=== PATIENT | male | born 1940 | race Hispanic/Latino ===

== ENCOUNTER 2019-11-19 15:27 | Inpatient (IN) | payer MEDICARE, OTHER ==
[~2019-11-19] VITALS: Ht 170.2 cm; Wt 99.3 kg
[2019-11-19] MEDS ORDERED: ONDANSETRON HCL INJ 2MG/ML 2ML 2 MG/ML VIAL IV PRN (16:45)
[2019-11-19] MEDS ORDERED: DEXTROSE 5%/0.45% SOD CHL 1,000 ML IV SCH (16:45)
[2019-11-19] MEDS ORDERED: ASPIRIN 81 MG CHEW TAB PO ONE ×2 (16:45)
[2019-11-19 16:57] VITALS: BP 129/64
[2019-11-19 17:15] VITALS: BP 129/64
[2019-11-19] MEDS ORDERED: MORPHINE SULFATE 2 MG/ML SYR 1ML IV PRN (17:30)
[2019-11-19] MEDS ORDERED: VITAMIN B-121000 MCG PO (17:41)
[2019-11-19] MEDS ORDERED: PIOGLITAZONE HC45 MG PO (17:41)
[2019-11-19] MEDS ORDERED: ASPIRIN81 MG PO (17:41)
[2019-11-19] MEDS ORDERED: ISOSORBIDE MONO30 MG PO (17:41)
[2019-11-19] MEDS ORDERED: GLIPIZIDE5 MG PO (17:41)
[2019-11-19] MEDS ORDERED: AMLODIPINE BESYL5 MG PO (17:41)
[2019-11-19] MEDS ORDERED: CARVEDILOL12.5 MG PO (17:41)
[2019-11-19] MEDS ORDERED: LOSARTAN-HCTZ1 EAC1 PO (17:41)
[2019-11-19] MEDS ORDERED: SIMVASTATIN20 MG PO (17:41)
[2019-11-19 18:08] LABS: CREATINE KINASE MB 1.5 ng/mL (0-5.0)
[2019-11-19] MEDS ORDERED: ACETAMINOPHEN 325 MG TAB PO PRN (19:45)
[2019-11-19] MEDS ORDERED: HYDRALAZINE HCL 20 MG/ML VIAL IV PRN (19:45)
[2019-11-19 20:00] VITALS: BP 142/53
[2019-11-19] MEDS: SODIUM CHLORIDE 0.9% 1000ML 1,000 ML IV SCH (20:20)
[2019-11-19 22:49] VITALS: BP 142/53
[2019-11-20] VITALS (8 sets, daily range): BP systolic 97–144; BP diastolic 57–74
[2019-11-20 01:26] LABS: CREATINE KINASE MB 1.4 ng/mL (0-5.0)
[2019-11-20] MEDS: SODIUM CHLORIDE 0.9% 1000ML 1,000 ML IV SCH ×3 (04:00→16:56)
[2019-11-20 05:35] LABS: BASOPHILS % 0.3 % (0.0-1.0); EOSINOPHILS # (AUTO) 0.1 (0.0-0.4); EOSINOPHILS % 1.2 % (0.0-6.0); HEMATOCRIT 36.3 % (38.2-49.6); HEMOGLOBIN 12.4 g/dL (14.0-18.0); LYMPHOCYTES # (AUTO) 1.2 (1.0-3.2); MEAN CORPUSCULAR HEMOGLOBIN 35.8 pg (28-32); MEAN CORPUSCULAR HGB CONC 34.2 g/dL (31-35); MEAN CORPUSCULAR VOLUME 104.9 fL (81-99); MONOCYTES # (AUTO) 0.6 (0.2-0.8); NEUTROPHILS # (AUTO) 5.5 (2.1-6.9); NEUTROPHILS % 74.1 % (38.7-80.0); PLATELET COUNT 125 x10e3/uL (140-360); RED BLOOD COUNT 3.46 x10e6/uL (4.3-5.7); RED CELL DISTRIBUTION WIDTH 12.9 % (11.7-14.4)
[2019-11-20 06:01] LABS: ALBUMIN 3.8 g/dL (3.5-5.0); ALBUMIN/GLOBULIN RATIO 1.3 (0.8-2.0); ANION GAP 11.5 mmol/L (8-16); CALCIUM 8.7 mg/dL (8.4-10.2); CREATININE, SERUM 1.78 mg/dL (0.72-1.25); POTASSIUM 4.5 mmol/L (3.5-5.1)
[2019-11-20 06:22] LABS: CREATINE KINASE MB 1.3 ng/mL (0-5.0)
[2019-11-20 06:32] LABS: INR 1.14; PROTHROMBIN TIME 15.3 seconds (11.9-14.5)
[2019-11-20 06:56] LABS: THYROID STIMULATING HORMONE 1.56 uIU/mL (0.350-4.940)
[2019-11-20 06:57] LABS: CHOL/HDL RATIO 4.1 (3.9-4.7)
--- NOTE | 2019-11-20 07:10 | NUR ---
RCD PT AT BED PT IS ALERT AND ORIENTED PT RESTING ON BED IV PATENT PT NPO BED LOW AND LOCKED CALL LIGHT IN REACH
[2019-11-20] MEDS: ASPIRIN 81 MG CHEW TAB PO SCH (09:00)
[2019-11-20] MEDS: ENOXAPARIN SODIUM INJ 100 MG/ML SYR SC SCH (09:00)
[2019-11-20] MEDS: FAMOTIDINE 20 MG/2 ML VIAL IV SCH ×2 (09:00→16:19)
--- NOTE | 2019-11-20 09:25 | NUR ---
PT WENT TO PROCEDURE IN SAFE CONDITION
[2019-11-20] MEDS: INSULIN LISPRO 100 UNIT/1 ML 3ML VIAL SQ SCH ×3 (11:30→20:50)
[2019-11-20] MEDS ORDERED: DEXTROSE 50% SYRINGE 50 ML IV PRN (11:30)
--- NOTE | 2019-11-20 12:27 | NUR ---
Discontinuing PT services since patient is independent in functional mobility. Thank you. Addendum: 11/20/19 at 1227 by Loc vargas PT Amended: Links added.
[2019-11-20] MEDS: AMLODIPINE BESYLATE 5 MG TAB PO SCH (12:30)
--- NOTE | 2019-11-20 14:44 | Diagnostic Imaging Report ---
Perfusion Lung Scan NOTE: Lung ventilation studies with xenon are not being performed per the recommendation of the Society of Nuclear Medicine and Molecular [employer]. It is not possible to be certain that the ventilation system is adequately disinfected. Ventilation studies with Tc-99m DTPA particles is contraindicated because the delivery by nebulization generates too many water droplets from the patient's airway. Clinical Information: Chest pain; acute pancreatitis Comparison: None Discussion: Ventilation images were not obtained. See note above. Perfusion images of the lungs were obtained in multiple projections following intravenous administration of approximately 6.1 mCi of Tc-99m MAA. Distribution of tracer is mildly irregular throughout the lungs. There are no segmental perfusion defects of any size. The cardiomediastinal silhouette is borderline enlarged. Impression: 1. Scan findings represent a VERY LOW probability for acute pulmonary embolic disease based on the perfusion-only PIOPED II criteria. 2. Scan findings are compatible with diffuse parenchymal and/or obstructive lung disease 3. Borderline enlarged cardiac silhouette. Signed by: Dr. Sarah Miranda M.D. on 11/20/2019 2:41 PM
--- NOTE | 2019-11-20 15:21 | Diagnostic Imaging Report ---
EXAM: Right upper quadrant abdominal ultrasound INDICATION: Right upper quadrant pain COMPARISON: None. TECHNIQUE: Transverse and longitudinal images of the right upper quadrant abdomen were obtained FINDINGS: Liver: Size: 14.6 cm in the right midclavicular line, normal Appearance: Normal echogenicity, smooth contour Mass: No focal masses Gallbladder: Gallstones and sludge in the gallbladder. No gallbladder wall thickening, gallbladder distention, or cholecystic fluid. Negative sonographic Hale's sign. Gallbladder wall measures 3 mm. Bile Ducts: Intrahepatic Ducts: No dilatation Extrahepatic Ducts: Common bile duct measures 3 mm Pancreas: Visualized portions of the pancreatic head, neck and proximal body are normal. Kidney: The right kidney measures 11.0 cm without evidence of hydronephrosis or stone. Vessels: Aorta: Not well-visualized due to overlying bowel gas. Inferior Vena Cava: Visualized portions are normal Main Portal Vein: 1.1 cm, normal size with hepatopetal flow. Free Fluid: No ascites or pleural effusion IMPRESSION: Cholelithiasis and gallbladder sludge without sonographic evidence of acute cholecystitis. Signed by: Sinai Multani MD on 11/20/2019 3:18 PM
--- NOTE | 2019-11-20 18:38 | NUR ---
PATIENT RESTING ON BED BEDSIDE REPORT GIVEN TO ONCOMING NURSE
[2019-11-20] MEDS: SIMVASTATIN 20 MG TAB PO SCH (21:30)
[2019-11-21] VITALS (8 sets, daily range): BP systolic 119–143; BP diastolic 53–61
[2019-11-21] MEDS: SODIUM CHLORIDE 0.9% 1000ML 1,000 ML IV SCH ×2 (02:52→14:30)
[2019-11-21 05:21] LABS: BASOPHILS % 0.2 % (0.0-1.0); EOSINOPHILS # (AUTO) 0.1 (0.0-0.4); EOSINOPHILS % 2.3 % (0.0-6.0); LYMPHOCYTES # (AUTO) 1.1 (1.0-3.2); LYMPHOCYTES % 18.6 % (18.0-39.1); MEAN CORPUSCULAR HGB CONC 33.3 g/dL (31-35); MONOCYTES # (AUTO) 0.7 (0.2-0.8); MONOCYTES % 11.9 % (4.4-11.3); NEUTROPHILS % 66.7 % (38.7-80.0); PLATELET COUNT 129 x10e3/uL (140-360); RED BLOOD COUNT 3.53 x10e6/uL (4.3-5.7); RED CELL DISTRIBUTION WIDTH 12.5 % (11.7-14.4)
[2019-11-21 05:54] LABS: ALBUMIN 3.5 g/dL (3.5-5.0); ALBUMIN/GLOBULIN RATIO 1.1 (0.8-2.0); ANION GAP 12.6 mmol/L (8-16); CALCIUM 8.7 mg/dL (8.4-10.2); CREATININE, SERUM 1.49 mg/dL (0.72-1.25); POTASSIUM 4.6 mmol/L (3.5-5.1)
[2019-11-21] MEDS: INSULIN LISPRO 100 UNIT/1 ML 3ML VIAL SQ SCH ×4 (07:30→20:43)
[2019-11-21] MEDS: ASPIRIN 81 MG CHEW TAB PO SCH (09:24)
[2019-11-21] MEDS: AMLODIPINE BESYLATE 5 MG TAB PO SCH (09:24)
[2019-11-21] MEDS: ISOSORBIDE MONONITRATE 30 MG TAB CR PO SCH (09:24)
[2019-11-21] MEDS: FAMOTIDINE 20 MG/2 ML VIAL IV SCH ×2 (09:27→16:53)
[2019-11-21] MEDS: ENOXAPARIN SODIUM INJ 100 MG/ML SYR SC SCH (09:27)
[2019-11-21] MEDS: LACTATED RINGER'S 1,000 ML INJ SCH (18:42)
--- NOTE | 2019-11-21 20:42 | Progress Note ---
DATE: CONSULTING PHYSICIAN: Dr. Isiah Mae with Surgery. SUBJECTIVE: The patient is lying supine in bed, awake, alert, abdominal pain currently rated at 2 on a scale of 0-10. States he is urinating frequently all night. No specific complaints. OBJECTIVE: VITAL SIGNS: Temperature 98.5, heart rate 62, respirations 17, blood pressure 135/61 with oxygen saturation 98% on room air. GENERAL: No acute distress. LUNGS: Clear to auscultation. Respiratory pattern even and unlabored. HEENT: EOMI. NECK: Supple. CARDIOVASCULAR: Regular rate and rhythm. No murmur. Normal saline infusing at 100 mL an hour into a peripheral IV. ABDOMEN: Bowel sounds positive. Soft, nontender. No guarding. EXTREMITIES: Without pitting edema. No clubbing, cyanosis, or notable swelling. No signs of DVT. NEUROLOGICAL: GCS 15. Nonfocal. LABORATORY DATA: WBCs 5.98, hemoglobin 12, hematocrit 36, and platelets 129. Sodium 141, potassium 4.6, chloride 110, CO2 of 23, BUN 17, creatinine 1.49, estimated GFR 45, and glucose 113. Fingerstick blood glucose levels 121 and 126, calcium 8.7, total bilirubin 1.9, AST 94, ALT 162, alkaline phosphatase 128, total protein 6.6, albumin 3.5, and lipase 226 (1416). Serology; Olea virus PCR collected on 11/18 is pending. 11/19, abdominal ultrasound showed cholelithiasis and gallbladder sludge without sonographic evidence of acute cholecystitis. V/Q lung scan collected on 11/19, scan findings representing a very low probability for acute pulmonary embolic disease based on the perfusion only PIOPED II criteria. Echocardiogram done on 11/18 shows an estimated ejection fraction of 55-60%. ASSESSMENT AND PLAN: 1. Chest pain, resolved. Cardiac biomarkers were negative x3 sets. Ejection fraction 55-60%. Lipids were within normal limits. Continue aspirin. 2. Acute pancreatitis. Lipase trending downward nicely currently 226. Continue n.p.o. status, IV fluids of normal saline at 100 mL an hour. Continue to monitor lipase levels. Ultrasound did show cholelithiasis without cholecystitis. Dr. aMe with Surgery consulted to determine if patient needs cholecystectomy. 3. Elevated D-dimer. Continue Lovenox. V/Q scan negative. 4. Controlled type 2 diabetes mellitus. Hemoglobin A1c 5.7%. Fingerstick blood glucose levels stable. Continue to monitor. 5. Hyperlipidemia. Continue Zocor. 6. Controlled hypertension. Continue p.r.n. IV hydralazine and Norvasc 5 mg daily and isosorbide mononitrate 60 mg daily. 7. Acute kidney injury. Creatine 1.47, estimated GFR 45. Continue IV fluids. Monitor renal labs. 8. Transaminitis. Liver function tests stable. Abdominal ultrasound showed cholelithiasis. Abdominal pain improving significantly. 9. Thrombocytopenia with platelet level of 129. We will discontinue Pepcid and start on Protonix. 10. Prophylaxis. Protonix and Lovenox. Billing code 36618. Time spent 35 minutes. Dictated by Sin Fagan NP Wang Enciso MD HWP/MODL /[id number]
[2019-11-21] MEDS: SIMVASTATIN 20 MG TAB PO SCH (20:59)
[2019-11-22] VITALS (8 sets, daily range): BP systolic 138–182; BP diastolic 54–91
[2019-11-22] MEDS: LACTATED RINGER'S 1,000 ML INJ SCH ×2 (04:15→15:28)
[2019-11-22 05:07] LABS: BASOPHILS % 0.3 % (0.0-1.0); EOSINOPHILS # (AUTO) 0.1 (0.0-0.4); EOSINOPHILS % 2.2 % (0.0-6.0); HEMATOCRIT 34.2 % (38.2-49.6); HEMOGLOBIN 11.8 g/dL (14.0-18.0); LYMPHOCYTES # (AUTO) 1.3 (1.0-3.2); MEAN CORPUSCULAR HEMOGLOBIN 34.4 pg (28-32); MEAN CORPUSCULAR HGB CONC 34.5 g/dL (31-35); MEAN CORPUSCULAR VOLUME 99.7 fL (81-99); MONOCYTES # (AUTO) 0.7 (0.2-0.8); NEUTROPHILS # (AUTO) 3.7 (2.1-6.9); PLATELET COUNT 123 x10e3/uL (140-360); RED BLOOD COUNT 3.43 x10e6/uL (4.3-5.7); RED CELL DISTRIBUTION WIDTH 11.9 % (11.7-14.4)
[2019-11-22 05:39] LABS: ALBUMIN 3.3 g/dL (3.5-5.0); ALBUMIN/GLOBULIN RATIO 1.1 (0.8-2.0); ANION GAP 11.9 mmol/L (8-16); CALCIUM 8.7 mg/dL (8.4-10.2); CREATININE, SERUM 1.21 mg/dL (0.72-1.25); POTASSIUM 3.9 mmol/L (3.5-5.1)
[2019-11-22] MEDS: INSULIN LISPRO 100 UNIT/1 ML 3ML VIAL SQ SCH ×4 (07:30→21:00)
[2019-11-22] MEDS: ENOXAPARIN SODIUM INJ 100 MG/ML SYR SC SCH (08:38)
[2019-11-22] MEDS: ASPIRIN 81 MG CHEW TAB PO SCH (08:38)
[2019-11-22] MEDS: PANTOPRAZOLE SOD 40 MG TABEC PO SCH (08:38)
[2019-11-22] MEDS: ISOSORBIDE MONONITRATE 30 MG TAB CR PO SCH (08:38)
[2019-11-22] MEDS: AMLODIPINE BESYLATE 5 MG TAB PO SCH (08:38)
--- NOTE | 2019-11-22 14:07 | Consultation ---
DATE OF CONSULTATION: 11/22/2019 CHIEF COMPLAINT: Chest pain. HISTORY OF PRESENT ILLNESS: The patient is an 79-year-old male with 4-day history of pain in epigastric lower chest area. No radiation with nausea. No vomiting. Pain has improved since admission. He denies fever, chills, or diarrhea. He has mild attacks in the past, which resolved spontaneously. PAST MEDICAL HISTORY: Significant for coronary artery disease, diabetes, hyperlipidemia, hypertension, and renal insufficiency. PAST SURGICAL HISTORY: Unremarkable except for coronary artery bypass. ALLERGIES: HE HAS NO DRUG ALLERGIES. SOCIAL HABITS: He does not smoke or drink. REVIEW OF SYSTEMS: No chest pain, shortness of breath, fever, or cough. PHYSICAL EXAMINATION: VITAL SIGNS: Stable, afebrile. GENERAL: He is awake, alert, in mild discomfort. HEENT: Sclerae are nonicteric. NECK: Supple. LUNGS: Clear. HEART: Regular rate and rhythm. ABDOMEN: Soft with mild guarding in right upper quadrant without rebound. EXTREMITIES: No cyanosis or edema. LABORATORY DATA: White cell count 5.9, hemoglobin 11.8, and platelets count 123. Creatinine is 1.2. Liver function tests within normal limits with bilirubin 1.8 and alkaline phosphatase 130. Lipase is 134 from a high of 5746. Ultrasound of the gallbladder showed gallstone with sludge. ASSESSMENT: Gallstone pancreatitis, which has improved. PLAN: Laparoscopic cholecystectomy. Attendant risks discussed. Isiah Mae MD DNL/MODL /[id number]
--- NOTE | 2019-11-22 19:25 | NUR ---
Completed bedside nursing report with morning nurse. Pt alert and oriented to name, lying in bed HOB 60 degrees. Denies pain at this time. Call light within reach.
[2019-11-22] MEDS: SIMVASTATIN 20 MG TAB PO SCH (21:00)
[2019-11-23] VITALS: BP_SYST 134; BP_DIAS 71; BP_DIAS 72
--- NOTE | 2019-11-23 00:39 | Progress Note ---
DATE: CONSULTING PHYSICIAN: Isiah mae MD SUBJECTIVE: The patient is lying supine in bed, asleep and arouses easily. Denies chest or abdominal pain. No new complaints. OBJECTIVE: VITAL SIGNS: Temperature 98.9, heart rate 62, blood pressure 153/66, respirations 18, and oxygen saturation 97%. GENERAL: Supine, no acute distress. LUNGS: Clear to auscultation. No supplemental oxygen. HEENT: EOMI. NECK: Supple. CARDIOVASCULAR: Regular rate and rhythm. No murmur. Lactated Ringer's infusing at 100 mL an hour into a peripheral IV. ABDOMEN: Bowel sounds positive. Soft, nontender. EXTREMITIES: Without pitting edema. No clubbing, cyanosis, or notable swelling. No signs of DVT. NEUROLOGICAL: GCS 15. Nonfocal. LABORATORY DATA: WBCs 5.91, hemoglobin 11.8, hematocrit 34.2, platelets 123. Sodium 140, potassium 3.9, chloride 109, CO2 of 23, BUN 14, creatinine 1.21, glucose 104, estimated GFR 58. Fingerstick blood glucose levels 107, 120. Lipase 134 (226). Total bilirubin 1.8, AST 47, ALT 107, alkaline phosphatase 130, total protein 6.3, albumin 3.3. No new imaging studies. ASSESSMENT AND PLAN: 1. Gallstone pancreatitis. Lipase continues to trend down. NPO for cholecystectomy tomorrow by Dr. Mae. Continue LR at 100 mL an hour. 2. Elevated D-dimer. Continue Lovenox. V/Q scan negative. 3. Controlled type 2 diabetes mellitus. Hemoglobin A1c 5.7%. Monitor fingerstick blood glucose levels. 4. Hyperlipidemia, on Zocor. 5. Controlled hypertension. Continue p.r.n. IV hydralazine and Norvasc as well as isosorbide mononitrate. 6. Acute kidney injury. Creatinine 1.21 (1.49). Estimated GFR 58 (45). Continue IV fluids. Reassess renal labs in the morning. 7. Transaminitis. Liver function tests stable. AST and ALT continue to improve. Total bilirubin 1.8. 8. Thrombocytopenia. Platelets 123 (129). 9. Prophylaxis. Pepcid and Lovenox. Billing code [id number]. Time spent 35 minutes. Dictated by Sin Fagan, GRADER OPERATOR MD KATHERINE Gordon/LESLEY /[id number]
[2019-11-23 04:00] VITALS: BP 151/66
[2019-11-23] MEDS: LACTATED RINGER'S 1,000 ML INJ SCH ×3 (05:30→21:15)
[2019-11-23 06:26] LABS: BASOPHILS % 0.4 % (0.0-1.0); EOSINOPHILS # (AUTO) 0.2 (0.0-0.4); EOSINOPHILS % 3.1 % (0.0-6.0); HEMATOCRIT 33.9 % (38.2-49.6); HEMOGLOBIN 12.1 g/dL (14.0-18.0); LYMPHOCYTES # (AUTO) 1.3 (1.0-3.2); MEAN CORPUSCULAR HGB CONC 35.7 g/dL (31-35); MEAN CORPUSCULAR VOLUME 103.7 fL (81-99); MONOCYTES # (AUTO) 0.6 (0.2-0.8); NEUTROPHILS # (AUTO) 3.1 (2.1-6.9); NEUTROPHILS % 58.7 % (38.7-80.0); PLATELET COUNT 114 x10e3/uL (140-360); RED BLOOD COUNT 3.27 x10e6/uL (4.3-5.7); RED CELL DISTRIBUTION WIDTH 12.7 % (11.7-14.4)
[2019-11-23 06:46] LABS: ALBUMIN 3.5 g/dL (3.5-5.0); ALBUMIN/GLOBULIN RATIO 1.1 (0.8-2.0); ANION GAP 13.1 mmol/L (8-16); CREATININE, SERUM 1.23 mg/dL (0.72-1.25); POTASSIUM 4.1 mmol/L (3.5-5.1)
[2019-11-23 07:27] VITALS: BP 160/76
[2019-11-23] MEDS: INSULIN LISPRO 100 UNIT/1 ML 3ML VIAL SQ SCH ×4 (07:30→20:48)
[2019-11-23] MEDS: AMLODIPINE BESYLATE 5 MG TAB PO SCH (09:30)
[2019-11-23] MEDS: ISOSORBIDE MONONITRATE 30 MG TAB CR PO SCH (09:30)
[2019-11-23] MEDS ORDERED: BUPIVACAINE 0.25%/EPI 30ML SDV INJ ONE (10:22)
[2019-11-23 11:27] VITALS: BP 141/66
--- NOTE | 2019-11-23 12:40 | NUR ---
Dr. Mae called to see if cardiology has cleared patient for surgery yet. I told him there is not dictated note from cardiology in the EMR or in the paper chart. Per Dr. Mae surgery will have to be rescheduled for 11/24/2019 and cardiology needs to come by today to clear the patient. Patient and patient's daughter was notified.
[2019-11-23 15:43] VITALS: BP 151/61
--- NOTE | 2019-11-23 16:13 | NUR ---
Spoke to Dr. Sarah Sanchez he said he will be back here today to see the patient and clear him for surgery tomorrow.
[2019-11-23] MEDS: PANTOPRAZOLE SOD 40 MG TABEC PO SCH (17:04)
[2019-11-23] MEDS: ASPIRIN 81 MG CHEW TAB PO SCH (17:04)
--- NOTE | 2019-11-23 19:20 | NUR ---
Received nursing shift report from morning nurse. Pt alert and oriented to name. Denies pain at this time. Bed low and locked. Call light within reach.
[2019-11-23 20:00] VITALS: BP 163/70
[2019-11-23] MEDS: SIMVASTATIN 20 MG TAB PO SCH (20:47)
--- NOTE | 2019-11-23 21:40 | Progress Note ---
DATE: 11/23/2019 SUBJECTIVE: The patient is lying supine in bed. No new complaints. Seems to be doing well overall. Dr. Sarah Sanchez, Cardiology, saw the patient today. Case was discussed with Dr. Sanchez and the patient is cleared from a Cardiology standpoint for cholecystectomy tomorrow, on 11/23. OBJECTIVE: VITAL SIGNS: Temperature 97.9, heart rate 70, blood pressure 141/66, respirations 16, oxygen saturation 98%. GENERAL: No acute distress. LUNGS: Clear auscultation. Respirations even and nonlabored. HEENT: EOMI. NECK: Supple. CARDIOVASCULAR: Regular rate and rhythm without murmur. The patient took a shower, currently lactated Ringer's not infusing. ABDOMEN: Bowel sounds positive. Soft, nontender. EXTREMITIES: No pitting edema. No clubbing, cyanosis, or signs of DVT. NEUROLOGICAL: GCS 15. Nonfocal. LABORATORY DATA: WBC is 5.23, hemoglobin 12.1, hematocrit 33.9, platelets 114, neutrophils 50.7%. Sodium 141, potassium 4.1, chloride 106, CO2 of 26, BUN 11, creatinine 1.23, glucose 100, estimated GFR 57, calcium 9.0, total bilirubin 1.5, AST 42, ALT 86, alkaline phosphatase 156, total protein 6.7, albumin 3.5. No new imaging studies. ASSESSMENT AND PLAN: 1. Gallstone pancreatitis. Lipase has trended down well. Maintain n.p.o. status for cholecystectomy tomorrow by Dr. Mae. Cardiology has cleared for surgery. Continue LR at 100 mL an hour. 2. Elevated D-dimer. Continue Lovenox. V/Q scan was negative. 3. Controlled type 2 diabetes mellitus. Hemoglobin A1c 5.7%. Fingerstick blood glucose levels 107 and 120 yesterday. 4. Hyperlipidemia, on Zocor. 5. Controlled hypertension. Continue Norvasc and p.r.n. IV hydralazine and isosorbide mononitrate. 6. Acute kidney injury. Creatinine 1.23 (1.21, 1.49). Continue IV fluids. Monitor renal labs. 7. Transaminitis. Total bilirubin 1.5 (1.8), AST 42, ALT 86, alkaline phosphatase 156. 8. Thrombocytopenia. Platelets 114 (123, 129). Pepcid has been changed to Protonix. Monitor. 9. Prophylaxis. Protonix and Lovenox. Billing code [id number]. Time spent 35 minutes. Dictated by Sin Fagan, TIMEKEEPER MD KATHERINE Gordon/MODL /[id number]
--- NOTE | 2019-11-23 22:25 | Consultation ---
DATE OF CONSULTATION: 11/22/2019 Cardiology Consult Note REASON FOR CONSULT: Chest pain. Preoperative assessment. CHIEF COMPLAINT: Abdominal pain and chest pain. HISTORY OF PRESENT ILLNESS: An 79-year-old man, who presents with epigastric pain, nausea, vomiting, and abdominal pain. No prior history of CAD. His abdominal pain has since improved. There is plan for laparoscopic cholecystectomy for gallstone pancreatitis. PAST MEDICAL HISTORY: Hypertension, hyperlipidemia, diabetes, chronic kidney disease. REVIEW OF SYSTEMS: As per HPI, otherwise negative. SOCIAL HISTORY: He does not smoke, drink, or abuse drugs. FAMILY HISTORY: Noncontributory. OUTPATIENT MEDICATIONS: Reviewed. ALLERGIES: NO KNOWN DRUG ALLERGIES. PHYSICAL EXAMINATION: VITAL SIGNS: Temperature afebrile, pulse 70, blood pressure 141/66, saturating 98% on room air. GENERAL: Elderly man, in no acute distress. CARDIOVASCULAR: Regular rate and rhythm. No murmurs, rubs, or gallops. LUNGS: Clear to auscultation bilaterally. ABDOMEN: Soft, mildly tender, nondistended. NEURO AND PSYCH: Alert and oriented to person, place, and time. Normal affect. INPATIENT MEDICATIONS: Reviewed. LABORATORY DATA: Reviewed, notable for troponins negative x3. GFR 57. Coronavirus negative. IMAGING DATA: Reviewed. V/Q scan, low probability. TELEMETRY DATA: Reviewed, shows normal sinus rhythm. ASSESSMENT/PLAN: 1. Bradycardia. 2. Chest pain. 3. Preop evaluation. PLAN: Bradycardia has resolved. Echocardiogram reviewed, shows normal LV function. No significant valvular abnormalities. EKG without any acute ischemia. Troponin negative x3. Given these findings, the patient will be low risk for laparoscopic cholecystectomy from a cardiovascular standpoint. Okay to proceed without any further cardiovascular workup. We will continue to monitor closely in the perioperative period. Thank you for this consult. We will continue to follow. MD KERRIE Marrero/LESLEY /[id number]
[2019-11-24] VITALS (8 sets, daily range): BP systolic 131–163; BP diastolic 50–89
[2019-11-24] MEDS: LACTATED RINGER'S 1,000 ML INJ SCH ×2 (06:15→16:15)
--- NOTE | 2019-11-24 07:00 | NUR ---
received report, pt is alert resting in bed, no s/s of distress noted. pt informed that lap katrina will be at 11 am. call light within reach and instructed pt to call RN for help
[2019-11-24] MEDS: PANTOPRAZOLE SOD 40 MG TABEC PO SCH (07:30)
[2019-11-24] MEDS: INSULIN LISPRO 100 UNIT/1 ML 3ML VIAL SQ SCH ×4 (07:30→19:31)
[2019-11-24] MEDS: ISOSORBIDE MONONITRATE 30 MG TAB CR PO SCH (07:40)
[2019-11-24] MEDS: ASPIRIN 81 MG CHEW TAB PO SCH (07:40)
[2019-11-24] MEDS: AMLODIPINE BESYLATE 5 MG TAB PO SCH (07:41)
--- NOTE | 2019-11-24 09:45 | NUR ---
pt off unit for scheduled lap katrina
[2019-11-24] MEDS ORDERED: BUPIVACAINE 0.25%/EPI 30ML SDV INJ ONE (10:05)
--- NOTE | 2019-11-24 12:29 | NUR ---
pt is still off unit in OR
[2019-11-24] MEDS ORDERED: MORPHINE SULFATE INJ 4 MG/ML INJ 1ML IV PRN (13:15)
[2019-11-24] MEDS ORDERED: FENTANYL CITRATE/PF 100MCG/2 ML INJ ONE (13:33)
--- NOTE | 2019-11-24 14:04 | Operative Report ---
DATE OF PROCEDURE: 11/24/2019 SURGEON: Isiah Mae MD PREOPERATIVE DIAGNOSIS: Cholecystitis. POSTOPERATIVE DIAGNOSES: 1. Cholecystitis. 2. Cirrhosis of liver. OPERATIVE PROCEDURE: Laparoscopic cholecystectomy. ANESTHESIA: General. INDICATION: An 79-year-old male with abdominal pain and elevated serum lipase. The patient was found to have ultrasound findings of gallstone. After the pancreatitis has resolved and MRCP negative, the patient consented for laparoscopic cholecystectomy. Attendant risks discussed. PROCEDURE FINDINGS: Liver cirrhosis with cholecystitis and pigmented stones. DESCRIPTION OF PROCEDURE: The patient was brought to the OR intubated. Abdomen was then prepped and draped in sterile fashion. Infraumbilical incision was made and a 10 mm port inserted. Insufflation begun under direct vision. Other port site placed in the midepigastric and right upper quadrant. Gallbladder distended and chronically inflamed. Fundus retracted in cephalad direction. Next, the gallbladder retracted laterally. We isolated cystic artery, triply clipped and divided. Cystic duct was isolated. However, there is gross information at the neck, precluding safe visualization and dissection. Therefore, a retrograde separation of the gallbladder from the liver bed was carried out using cautery. Due to the cirrhosis of the liver, bleeding from the gallbladder bed was encountered, which was controlled with cauterization and Surgicel. Dissection was carried out toward the neck of the gallbladder where the cystic duct was clearly visualized and controlled with an Endoloop ties of 0 PDS. The gallbladder was then amputated above the ties and removed through the umbilical incision with an Endopouch. Operative field irrigated with copious saline solution. Hemostasis achieved. A 19-Turkmen Marcin drain placed in Morison pouch and taken out through the right upper quadrant port site. All other ports removed under direct vision. Fascia closed with 0 Vicryl. Skin was closed with subcuticular stitch. The patient was extubated and transported to recovery room. BLOOD LOSS: 50 mL. Isiah Mae MD DNL/MODL /[id number]
--- NOTE | 2019-11-24 14:30 | NUR ---
received patient from PACU. pt is resting comfortably, no s/s of distress. pt is on RA, no c/o pain at this time
--- NOTE | 2019-11-24 16:12 | NUR ---
Nutrition Screen Note RD Recommendation for Physician: -Recommend advancing to low fat diet when medically appropriate Plan of Care: RD following, monitoring for tolerance and adequacy Nutrition reason for involvement: NPO/Clear liquid diet for > 4 days Primary Diagnose(s): chest pain, gallstone pancreatitis PMH: HTN, HLD, diabetes, CKD Ht: 67 in Wt:219 lb BMI: 34.3 kg/m2 IBW:[address] Assessment: (11/24/19) Chart reviewed. Labs and meds reviewed. Pt is an 79 year old male admitted with chest pain and gallstone pancreatitis. Attempted to call pt over the phone, but he did not answer. Per chart, pt is scheduled to have a cholecystectomy today. There are no previous weights in chart. Pt is currently NPO. Pt has been NPO/clear liquid diet for 5 days. Recommend advancing diet when medically appropriate. Will continue to monitor. Current Diet: NPO Malnutrition Evaluation (11/24/19) Unable to fully assess. Will re-evaluate at follow-up as appropriate. Energy intake: <50% of estimated energy requirements for 5 days Weight loss: Unable to assess Fat loss: unable to evaluate Muscle loss: unable to evaluate Supporting Evidence: Fluid accumulation: no accumulation identified Functional Status: unable to evaluate Diet Education Needs Assessment: Diet education is not indicated Nutrition Care Level: moderate Signed: Nelia Celeste, RD, LD
[2019-11-24] MEDS: SIMVASTATIN 20 MG TAB PO SCH (20:01)
--- NOTE | 2019-11-24 20:31 | Progress Note ---
DATE: 11/24/2019 Cardiology Progress Note SUBJECTIVE: No major events. He is planned for surgery today. OBJECTIVE: VITAL SIGNS: Temperature afebrile, pulse 60, respiratory rate 16, blood pressure 141/52, and saturating 98% on nasal cannula. GENERAL: Elderly man, in no acute distress. CARDIOVASCULAR: Regular rate and rhythm. No murmurs, rubs, or gallops. LUNGS: Clear to auscultation bilaterally. ABDOMEN: Soft, mildly tender, nondistended. NEUROLOGIC AND PSYCH: Alert and oriented to person, place, and time. Normal affect. INPATIENT MEDICATIONS: Reviewed. LABORATORY DATA: Reviewed. TELEMETRY DATA: Reviewed, shows normal sinus rhythm. ASSESSMENT AND PLAN: 1. Chest pain. 2. Preop evaluation, rule out for acute myocardial infarction with serial troponins. Echocardiogram shows normal LV function. No significant valvular disease. Okay to proceed with laparoscopic cholecystectomy. The patient is okay to be discharged from cardiovascular standpoint postoperatively, is doing well. He can follow up as an outpatient for stress test. Thank you for this consult. We will continue to follow. MD KERRIE Marrero/LESLEY /[id number]
[2019-11-25] VITALS (8 sets, daily range): BP systolic 139–147; BP diastolic 54–78
[2019-11-25] MEDS: LACTATED RINGER'S 1,000 ML INJ SCH ×3 (00:46→21:15)
[2019-11-25 06:03] LABS: BASOPHILS % 0.3 % (0.0-1.0); EOSINOPHILS # (AUTO) 0.1 (0.0-0.4); EOSINOPHILS % 1.2 % (0.0-6.0); HEMATOCRIT 36.9 % (38.2-49.6); HEMOGLOBIN 13.6 g/dL (14.0-18.0); LYMPHOCYTES # (AUTO) 1.1 (1.0-3.2); LYMPHOCYTES % 12.3 % (18.0-39.1); MEAN CORPUSCULAR HEMOGLOBIN 37.6 pg (28-32); MEAN CORPUSCULAR HGB CONC 36.9 g/dL (31-35); MEAN CORPUSCULAR VOLUME 101.9 fL (81-99); MONOCYTES # (AUTO) 0.9 (0.2-0.8); MONOCYTES % 9.6 % (4.4-11.3); NEUTROPHILS # (AUTO) 6.9 (2.1-6.9); NEUTROPHILS % 76.2 % (38.7-80.0); PLATELET COUNT 132 x10e3/uL (140-360); RED BLOOD COUNT 3.62 x10e6/uL (4.3-5.7); RED CELL DISTRIBUTION WIDTH 12.6 % (11.7-14.4)
[2019-11-25 06:30] LABS: ALANINE AMINOTRANSFERASE 86 IU/L (0-55); ALBUMIN 3.3 g/dL (3.5-5.0); ALKALINE PHOSPHATASE 154 IU/L (40-150); ANION GAP 15.7 mmol/L (8-16); BLOOD UREA NITROGEN 11 mg/dL (7-26); BUN/CREATININE RATIO 10 (6-25); CALCIUM 8.9 mg/dL (8.4-10.2); CARBON DIOXIDE 20 mmol/L (22-29); CHLORIDE 106 mmol/L (98-107); EST GLOMERULAR FILTRATION RATE > 60 ML/MIN (60-); GLUCOSE 110 mg/dL (74-118); LIPASE 51 U/L (8-78); MAGNESIUM 1.6 MG/DL (1.3-2.1); POTASSIUM 3.7 mmol/L (3.5-5.1); SODIUM 138 mmol/L (136-145)
--- NOTE | 2019-11-25 07:00 | NUR ---
RECEIVED PATIENT RESTING IN BED NO S/S OF DISTRESS. BED LOW, WHEELS LOCKED, SIDE RAILS X2. CALL LIGHT IN REACH WILL CONTINUE TO MONITOR PATIENT.
[2019-11-25] MEDS: INSULIN LISPRO 100 UNIT/1 ML 3ML VIAL SQ SCH ×4 (07:30→21:15)
[2019-11-25] MEDS: PANTOPRAZOLE SOD 40 MG TABEC PO SCH (08:40)
[2019-11-25] MEDS: ISOSORBIDE MONONITRATE 30 MG TAB CR PO SCH (08:40)
[2019-11-25] MEDS: AMLODIPINE BESYLATE 5 MG TAB PO SCH (08:40)
[2019-11-25] MEDS: ASPIRIN 81 MG CHEW TAB PO SCH (08:40)
[2019-11-25] MEDS ORDERED: HYDROCODONE/APAP 7.5MG-325MG 1 EA TAB PO PRN ×2 (12:30→12:45)
[2019-11-25] MEDS: SIMVASTATIN 20 MG TAB PO SCH (21:15)
--- NOTE | 2019-11-25 21:15 | NUR ---
PATIENT IS RESTING IN BED COMFORTABLY IN STABLE CONDITION, NO SIGNS OF DISTRESS NOTED. IV FLUIDS ARE RUNNING AT ORDERED RATE AND PATIENT VOICES PAIN AT A LEVEL OF 2 AND REQUESTS NO MEDICATION AT THIS TIME. PATIENT TOLERATING FULL LIQUID DIET AND WILL TRY A GI SOFT DIET FOR BREAKFAST. CHICO DRAIN IS PATENT AND DRAINING AT 50CC. BED IS IN LOWEST POSITION, BOTH SIDE RAILS ARE UP, CALL LIGHT IS WITHIN EASY REACH, WILL CONTINUE TO MONITOR.
[2019-11-25] MEDS ORDERED: MAGNESIUM SULFATE 2GM/50ML 50 ML IV ONE (23:00)
[2019-11-26] VITALS: BP 151/58
[2019-11-26 04:00] VITALS: BP 161/63
[2019-11-26] MEDS: INSULIN LISPRO 100 UNIT/1 ML 3ML VIAL SQ SCH ×2 (07:30→11:30)
[2019-11-26 08:31] VITALS: BP 153/72
[2019-11-26] MEDS: AMLODIPINE BESYLATE 5 MG TAB PO SCH (08:53)
[2019-11-26] MEDS: ISOSORBIDE MONONITRATE 30 MG TAB CR PO SCH (08:53)
[2019-11-26] MEDS: ASPIRIN 81 MG CHEW TAB PO SCH (08:53)
[2019-11-26] MEDS: PANTOPRAZOLE SOD 40 MG TABEC PO SCH (08:53)
[2019-11-26 08:57] VITALS: BP 153/72
[2019-11-26] MEDS ORDERED: MAGNESIUM HYDROXIDE 30 ML UDC PO ONE (10:00)
[2019-11-26] MEDS ORDERED: TYLENOL WITH C1 EACH PO (10:54)
[2019-11-26 11:41] VITALS: BP 136/68
--- NOTE | 2019-11-26 11:47 | Progress Note ---
DATE: 11/24/2019 CONSULTING PHYSICIANS: Include Dr. Isiah Mae with Surgery and Dr. Sander Vázquez with Cardiology. SUBJECTIVE: The patient is lying supine in bed. He states his abdominal pain is about 4/10 on 0 to 10 pain scale. He was seen postoperatively in room 214. He states he has not passed any gas yet. OBJECTIVE: VITAL SIGNS: Temperature 98.1, pulse 66, blood pressure 143/58, respirations 18, and oxygen saturation 98% on room air. GENERAL: Supine, in no acute distress. LUNGS: Clear to auscultation. No supplemental oxygen. HEENT: EOMI. NECK: Supple. CARDIOVASCULAR: Regular rate and rhythm. No murmur. Lactated Ringer's infusing at 75 mL an hour through a peripheral IV. ABDOMEN: Bowel sounds are present. Abdomen is soft. He has a right CHICO drain with serosanguineous drainage inside. No guarding. EXTREMITIES: No pitting edema. No clubbing, cyanosis, or signs of DVT. NEUROLOGICAL: GCS 15. Nonfocal. LABORATORY DATA: Fingerstick blood glucose level 110. IMAGING STUDIES: No new imaging studies. ASSESSMENT AND PLAN: 1. Gallstone pancreatitis, status post laparoscopic cholecystectomy on 11/24/[address] Mae. Lipase on 11/21 was 134. He has been n.p.o. We will place him on a clear liquid diet. Continue LR at 100 mL an hour. 2. Elevated D-dimer. V/Q scan negative. Lovenox was discontinued as the patient had surgery. 3. Controlled type 2 diabetes mellitus. Hemoglobin A1c 5.7%. Monitor FSBG. 4. Hyperlipidemia, on Zocor. 5. Controlled hypertension. Blood pressure 143/58. Continue Norvasc and p.r.n. IV hydralazine as well as isosorbide mononitrate. 6. Acute kidney injury. Creatinine 1.23 and estimated GFR 57 yesterday. Continue IV fluids. Reassess renal labs in the morning. 7. Transaminitis. Liver function tests have been stable. AST and ALT continue to improve. 8. Thrombocytopenia. Platelets were 114 yesterday, down from 123. Reassess platelets in the morning. 9. Prophylaxis, Pepcid. Billing code [id number]. Time spent 35 minutes. Dictated by Sin Fagan NP MD KATHERINE Gordon/LESLEY /[id number]
--- NOTE | 2019-11-26 12:01 | Progress Note ---
DATE: CONSULTING PHYSICIANS: Dr. Isiah Mae with Surgery and Dr. Sander Vázquez with Cardiology. SUBJECTIVE: Per MASSIEL [place], the patient is not eating much, not passing any flatus postoperatively. He was switched from clear liquid diet to a full liquid diet per Surgery. PHYSICAL EXAMINATION: VITAL SIGNS: Temperature 98.7, heart rate 64, blood pressure 142/55, respirations 20, oxygen saturation 95%, T-max 99.9. GENERAL: Asleep, easily arousable. LUNGS: Clear to auscultation. Respiratory pattern even unlabored. No supplemental oxygen. HEENT: EOMI. NECK: Supple. CARDIOVASCULAR: Regular rate and rhythm. No murmur. ABDOMEN: Bowel sounds are positive. Soft, obese, nondistended. He has a right abdominal CHICO drain with serosanguineous drainage inside. EXTREMITIES: No pitting edema. No clubbing, cyanosis, or notable swelling. NEUROLOGICAL: GCS 15. Nonfocal. LABORATORY DATA: WBCs 9.04, hemoglobin 13.6, hematocrit 36.9, and platelets 132. Sodium 138, potassium 3.7, chloride 106, CO2 of 20, anion gap 15.7, BUN 11, creatinine 1.1, estimated GFR greater than 60, glucose 110, calcium 8.9, phosphorus 3, magnesium 1.6, total bilirubin 1.2, AST 61, ALT 86, alkaline phosphatase 154, total protein 6.7, albumin 3.3, lipase 51. IMAGING STUDIES: No new imaging studies. ASSESSMENT AND PLAN: 1. Gallstone pancreatitis, status post laparoscopic cholecystectomy on 11/24/[address] Mae. Lipase trended down nicely. Lipase today 51 (134, 226, 1416, 5746). Continue LR at 100 mL/h. The patient seems to be tolerating full liquid diet okay, but not eating much, apparently not passing gas yet, and not ambulating. Encourage ambulation and see him again in the morning to determine if ready for discharge. Tolerating his full liquid diet, we will advance to GI soft. 2. Elevated D-dimer. V/Q scan negative. Lovenox was discontinued. 3. Controlled type 2 diabetes mellitus. Hemoglobin A1c 5.7%. Serum glucose 110. 4. Hyperlipidemia, on Zocor. 5. Controlled hypertension. Blood pressure 142/55. Continue isosorbide mononitrate, Norvasc, and p.r.n. IV hydralazine. 6. Acute kidney injury. Creatinine 1.1 (1.23). Estimated GFR greater than 60 (58, 45). Continue IV fluids. Acute kidney injury resolved. 7. Transaminitis. Liver function tests are stable. AST 61 (42), ALT 86 (86), alkaline phosphatase 154 (156), total bilirubin 1.2 (1.5, 1.8, 1.9). 8. Thrombocytopenia. Platelets 132 (114, 123, 129), improving. 9. Acute hypomagnesemia. Magnesium level 1.6, 2 g magnesium sulfate IV once ordered. 10. Prophylaxis. Pepcid. Billing code [id number]. Time spent 35 minutes. Dictated by Sin Fagan NP MD JOSIAS GordonP/DEVAUGHNL /[id number]
--- NOTE | 2019-11-26 12:12 | Discharge Summary ---
CONSULTING PHYSICIANS: 1. Isiah Mae MD, with Surgery. 2. Sander Vázquez MD, with Cardiology. PRIMARY CARE PHYSICIAN: Dr. Abdirahman Ayala. CHIEF COMPLAINT: Chest pain, abdominal pain. HISTORY OF PRESENT ILLNESS: The patient is an 79-year-old male, who was admitted with complaints of constant sharp chest pain that began yesterday morning. He denies nausea, vomiting, diarrhea, fever, shortness of breath, diaphoresis, or dizziness. According to the patient's daughter, the patient had a similar episode in the past due to "stones." PAST MEDICAL HISTORY: Hypertension, hyperlipidemia, type 2 diabetes mellitus. PAST SURGICAL HISTORY: Coronary artery bypass graft x4 vessels. FAMILY HISTORY: Noncontributory. SOCIAL HISTORY: Noncontributory. ALLERGIES: NO KNOWN ALLERGIES. ADMITTING DIAGNOSES: 1. Chest pain. 2. Acute pancreatitis. 3. Elevated D-dimer. 4. Type 2 diabetes mellitus. 5. Hyperlipidemia. 6. Hypertension. 7. Acute kidney injury. DISCHARGE DIAGNOSES: 1. Gallstone pancreatitis, status post laparoscopic cholecystectomy on 11/24/[address] Isiah Mae. 2. Elevated D-dimer. 3. Controlled type 2 diabetes mellitus. 4. Hyperlipidemia. 5. Controlled hypertension. 6. Acute kidney injury, resolved. 7. Transaminitis, improving. 8. Thrombocytopenia, improving. 9. Acute hypomagnesemia. Regarding the patient's gallstone pancreatitis, initially it was thought that he just had regular acute pancreatitis. However, Surgery was consulted after the ultrasound of the gallbladder done on 11/19, revealed cholelithiasis and gallbladder sludge without sonographic evidence of acute cholecystitis. Per the surgeon's dictated consultation note, assessment is gallstone pancreatitis, which has improved. Plan was for laparoscopic cholecystectomy. Cardiology was consulted for initial complaint of chest pain as well as cardiac clearance for the surgery. Cardiology saw the patient on 11/21. Bradycardia had resolved at that point. His echocardiogram done on 11/20/2019, revealed estimated ejection fraction of 55-60% showing normal left ventricular function. No significant valvular abnormalities. EKG was without any acute ischemia. Troponin was negative x3 and the patient was deemed to be low risk for laparoscopic cholecystectomy from a cardiovascular standpoint. IV fluids were changed on 11/20 to lactated Ringer's at 100 mL an hour due to the pancreatitis and his lipase level gradually went down to a normal. Pepcid was changed to Protonix because of thrombocytopenia. He was on Lovenox due to the elevated D-dimer. His V/Q scan was negative. Hemoglobin A1c 5.7% and blood sugars were stable. Blood pressure was controlled throughout his visit. His acute kidney injury gradually improved. Please see note dictated 11/24 for progress in lab values. Lipase level 51 on 11/24 and BUN 11, creatinine 1.1, estimated GFR greater than 60. This morning, the patient was seen by Dr. Mae and states the patient can be discharged from a Surgery standpoint. He plans to take out the drain on Wednesday at the patient's followup appointment. The patient states currently he has no pain. He is passing gas. Milk of magnesia was given per Dr. Mae's order for constipation, as he has not had a bowel movement several days. Today's vital signs, temperature 97.4, heart rate 71, blood pressure 161/63, respirations 20, oxygen saturation 95%. No change in physical exam. No new labs today. The patient will be discharged on a GI soft diet and advance to a regular diet gradually as tolerated. He tolerated GI soft diet with breakfast this morning. Activity level as tolerated. Encourage ambulation. Follow up with the PCP, Dr. Ayala in 1-2 weeks. Follow up with Dr. Mae in 2 days. Follow up with Dr. Vázquez [email or web address]. The patient to call Dr. Vázquez's office to make an appointment. Dictated by Sin Fagan, RALPH Wang Enciso MD HWP/MODL /[id number]
--- NOTE | 2019-11-26 12:50 | NUR ---
Educated patient how to empty aster drain. Patient voiced understanding and returned demonstration.
--- NOTE | 2019-11-26 13:19 | NUR ---
Left AC discontinued. No signs of infiltration noted. 2x2 gauze and tape placed. Taken via wheelchair to personal car. AAOX4 to time, person, place, situation. Respirations even and unlabored. Dressing to right abdomen aster drain clean, dry, and intact. Discharge instructions, rx, and all personal belongings taken with patient.
== END 2019-11-26 13:19 | disposition home or self-care (01) | DRG 418 ==
LOC: MED/SURG2 16:22
PROVIDERS: ADMIT Internal Medicine; ATTEND Internal Medicine
PROC: 0FT44ZZ Resection of Gallbladder, Percutaneous Endoscopic Approach (ICD-10-PCS; principal; 2019-11-24 11:00)
DX: K85.10 Biliary acute pancreatitis without necrosis or infection (principal); K80.10 Calculus of gallbladder with chronic cholecystitis without obstruction; N17.9 Acute kidney failure, unspecified; I10 Essential (primary) hypertension; D69.6 Thrombocytopenia, unspecified; E83.42 Hypomagnesemia; E11.9 Type 2 diabetes mellitus without complications; E78.5 Hyperlipidemia, unspecified; K74.60 Unspecified cirrhosis of liver; R00.1 Bradycardia, unspecified; Z11.59 Encounter for screening for other viral diseases
CPT/HCPCS: 36415; 76705; 78582; 80053; 80061; 82550; 82553; 82948; 83036; 83690; 83735; 84100; 84443; 84484; 85025; 85610; 88304; 93306; 96361; A9540; J0360; J1650; J2270; J2405; J3010; J3475; J7030; J7121; U0002

== ENCOUNTER 2022-02-03 09:32 | Inpatient (IN) | payer MEDICARE ==
[~2022-02-03] VITALS: Ht 177.8 cm; Wt 97.2 kg
[2022-02-03] VITALS (39 sets, daily range): BP systolic 57–124; BP diastolic 22–86
[~2022-02-03 09:32] MED LIST: AMLODIPINE BESYL5 MG PO; ASPIRIN81 MG PO; CARVEDILOL12.5 MG PO; GLIPIZIDE5 MG PO; ISOSORBIDE MONO30 MG PO; LOSARTAN-HCTZ1 EAC1 PO; PIOGLITAZONE HC45 MG PO; SIMVASTATIN20 MG PO; TYLENOL WITH C1 EACH PO; VITAMIN B-121000 MCG PO
[2022-02-03] MEDS ORDERED: SODIUM CHLORIDE 0.9% 1000ML 1,000 ML IV STA ×2 (09:59→12:00)
[2022-02-03 10:26] LABS: BASOPHILS % 0.2 % (0.0-1.0); EOSINOPHILS % 0.4 % (0.0-6.0); LYMPHOCYTES # (AUTO) 0.8 (1.0-3.2); LYMPHOCYTES % 7.6 % (18.0-39.1); MEAN CORPUSCULAR HEMOGLOBIN 36.6 pg (28-32); MEAN CORPUSCULAR HGB CONC 31.8 g/dL (31-35); MEAN CORPUSCULAR VOLUME 115.2 fL (81-99); MONOCYTES # (AUTO) 0.5 (0.2-0.8); MONOCYTES % 4.9 % (4.4-11.3); NEUTROPHILS # (AUTO) 8.9 (2.1-6.9); NEUTROPHILS % 85.7 % (38.7-80.0); PLATELET COUNT 240 x10e3/uL (140-360); RED BLOOD COUNT 1.91 x10e6/uL (4.3-5.7); RED CELL DISTRIBUTION WIDTH 13.5 % (11.7-14.4)
[2022-02-03 10:33] LABS: INR 2.7; PARTIAL THROMBOPLASTIN TIME 31.9 seconds (23.8-35.5); PROTHROMBIN TIME 30.6 seconds (11.9-14.5)
[2022-02-03 10:41] LABS: ALBUMIN 3.3 g/dL (3.5-5.0); ALBUMIN/GLOBULIN RATIO 1.3 (0.8-2.0); ANION GAP 20.7 mmol/L (8-16); CALCIUM 8.9 mg/dL (8.4-10.2); CREATININE, SERUM 2.24 mg/dL (0.72-1.25); MAGNESIUM 2.3 MG/DL (1.3-2.1); POTASSIUM 4.7 mmol/L (3.5-5.1)
[2022-02-03] MEDS ORDERED: SODIUM CHLORIDE 0.9% 250ML 250 ML IV ONE ×2 (11:00→17:15)
[2022-02-03 11:04] LABS: CREATINE KINASE MB 2.8 ng/mL (0-5.0); THYROID STIMULATING HORMONE 2.099 uIU/mL (0.350-4.940)
[2022-02-03] MEDS ORDERED: OCTREOTIDE ACETATE 0.05 MG/ML AMP IV ONE (11:30)
[2022-02-03] MEDS: OCTREOTIDE ACETATE 500 MCG in SODIUM CHLORIDE 0.9% 250ML 250 ML IV SCH ×2 (11:45→23:11)
[2022-02-03] MEDS ORDERED: DEXTROSE 50% SYRINGE 50 ML IV PRN (12:15)
[2022-02-03] MEDS ORDERED: ONDANSETRON HCL INJ 2MG/ML 2ML 2 MG/ML VIAL IV PRN (12:15)
[2022-02-03 12:41] LABS: % IRON SATURATION 26 % (15-50); IRON 107 ug/dL (65-175); TOTAL IRON BINDING CAPACITY 405 ug/dL (261-478); TRANSFERRIN 289 mg/dL (174-364)
[2022-02-03 12:44] LABS: PLATELET ESTIMATE ADEQUATE; PLATELET MORPHOLOGY COMMENT NORMAL; RBC MORPHOLOGY COMMENT ABNORMAL
[2022-02-03 13:56] LABS: CLARITY,URINE CLEAR (CLEAR); COLOR,URINE YELLOW (YELLOW); KETONES,URINE NEGATIVE (NEGATIVE); LEUKOCYTE ESTERASE ,URINE NEGATIVE (NEGATIVE); NITRITE,URINE NEGATIVE (NEGATIVE); PROTEIN,URINE DIPSTICK NEGATIVE (NEGATIVE); URINE UROBILINOGEN 0.2 mg/dL (0.2 - 1)
[2022-02-03 14:01] LABS: EPITHELIAL CELLS,URINE RARE /LPF; RBC,URINE 0-5 /HPF (0-5); WBC,URINE (MAN) 0-5 /HPF (0-5)
[2022-02-03] MEDS ORDERED: LIDOCAINE HCL 2% LOCAL 20 ML VIAL ONE (14:39)
[2022-02-03] MEDS: NOREPINEPHRINE 8 MG/D5W 250 ML 250 ML IV SCH ×2 (15:59→23:23)
[2022-02-03] MEDS: INSULIN REGULAR, HUMAN 100 UNIT/1 ML SQ SCH ×2 (16:30→21:41)
[2022-02-03] MEDS ORDERED: SODIUM CHLORIDE 0.9% 1000ML 1,000 ML ONE ×2 (16:39→18:23)
[2022-02-03 16:44] LABS: HEMOGLOBIN 6.7 g/dL (14.0-18.0)
[2022-02-03] MEDS ORDERED: HYDRALAZINE HCL 20 MG/ML VIAL IV PRN (16:45)
[2022-02-03] MEDS ORDERED: MEROPENEM 1 GM in SODIUM CHLORIDE 0.9% 100 ML IV ONE (16:45)
[2022-02-03] MEDS ORDERED: DESMOPRESSIN ACETATE 4 MCG/ML VIAL IV ONE (17:00)
[2022-02-03] MEDS: SODIUM CHLORIDE 0.9% 1000ML 1,000 ML IV SCH (17:03)
[2022-02-03] MEDS ORDERED: PHYTONADIONE 1 MG/0.5 ML AMP INJ ONE (17:15)
[2022-02-03] MEDS ORDERED: PHYTONADIONE 10MG/ML 2 ML ONE (17:21)
[2022-02-03] MEDS ORDERED: SODIUM CHLORIDE 0.9% 500ML 1,000 ML ONE (17:24)
[2022-02-03] MEDS ORDERED: PHYTONADIONE 10MG/ML 1 ML ONE (17:25)
[2022-02-03 17:30] LABS: INR 2.2; PROTHROMBIN TIME 26.1 seconds (11.9-14.5)
[2022-02-03] MEDS ORDERED: Vancomycin IV 1 GM in SODIUM CHLORIDE 0.9% 250ML 250 ML IV ONE (17:45)
[2022-02-03] MEDS ORDERED: VASOPRESSIN 60 UNIT in DEXTROSE 5% 50ML 57 ML IV PRN ×2 (18:15→18:45)
[2022-02-03] MEDS ORDERED: SODIUM CHLORIDE 0.9% 100 ML ONE (18:22)
[2022-02-03] MEDS ORDERED: IOPAMIDOL 370 MG/ML 100 ML INFUS..BTL INJ ONE (18:22)
[2022-02-03] MEDS ORDERED: VASOPRESSIN INJ 20 UNIT/ML VIAL ONE (18:25)
[2022-02-03] MEDS ORDERED: DEXTROSE 5% 50ML 50 ML IV ONE (18:26)
[2022-02-03 18:59] LABS: BASOPHILS % 0.2 % (0.0-1.0); EOSINOPHILS % 0.1 % (0.0-6.0); HEMATOCRIT 30.4 % (38.2-49.6); HEMOGLOBIN 9.6 g/dL (14.0-18.0); LYMPHOCYTES # (AUTO) 0.9 (1.0-3.2); LYMPHOCYTES % 7.4 % (18.0-39.1); MEAN CORPUSCULAR HEMOGLOBIN 31.9 pg (28-32); MEAN CORPUSCULAR HGB CONC 31.6 g/dL (31-35); MONOCYTES # (AUTO) 0.7 (0.2-0.8); MONOCYTES % 5.6 % (4.4-11.3); NEUTROPHILS # (AUTO) 10.4 (2.1-6.9); NEUTROPHILS % 85.3 % (38.7-80.0); PLATELET COUNT 148 x10e3/uL (140-360); RED BLOOD COUNT 3.01 x10e6/uL (4.3-5.7); RED CELL DISTRIBUTION WIDTH 19.2 % (11.7-14.4)
[2022-02-03 19:43] LABS: ANION GAP 21.2 mmol/L (8-16); CALCIUM 7.5 mg/dL (8.4-10.2); CREATININE, SERUM 2.29 mg/dL (0.72-1.25)
[2022-02-03 19:45] LABS: POTASSIUM 5.2 mmol/L (3.5-5.1)
[2022-02-03 20:08] LABS: ABG PCO2 28 mmHg (35-45); ABG PH 7.37 (7.35-7.45); ABG PO2 76 mmHg (80-105)
[2022-02-03 20:09] LABS: ABG HCO3 16 mmol/L (22-26); ABG TCO2 17
[2022-02-03] MEDS: SIMVASTATIN 20 MG TAB PO SCH (21:00)
[2022-02-03 22:25] LABS: HEMATOCRIT 32.6 % (38.2-49.6); HEMOGLOBIN 10.6 g/dL (14.0-18.0)
[2022-02-04] VITALS (92 sets, daily range): BP systolic 93–148; BP diastolic 49–127
[2022-02-04 00:35] LABS: INR 1.54; PROTHROMBIN TIME 19.8 seconds (11.9-14.5)
[2022-02-04 00:36] LABS: PARTIAL THROMBOPLASTIN TIME 29.2 seconds (23.8-35.5)
[2022-02-04] MEDS: SODIUM CHLORIDE 0.9% 1000ML 1,000 ML IV SCH (02:30)
[2022-02-04 06:13] LABS: BASOPHILS % 0.2 % (0.0-1.0); HEMATOCRIT 33.4 % (38.2-49.6); HEMOGLOBIN 10.9 g/dL (14.0-18.0); LYMPHOCYTES # (AUTO) 0.7 (1.0-3.2); LYMPHOCYTES % 4.3 % (18.0-39.1); MEAN CORPUSCULAR HEMOGLOBIN 32.1 pg (28-32); MEAN CORPUSCULAR HGB CONC 32.6 g/dL (31-35); MEAN CORPUSCULAR VOLUME 98.2 fL (81-99); MONOCYTES # (AUTO) 1.3 (0.2-0.8); MONOCYTES % 7.6 % (4.4-11.3); NEUTROPHILS # (AUTO) 14.1 (2.1-6.9); NEUTROPHILS % 86.6 % (38.7-80.0); PLATELET COUNT 200 x10e3/uL (140-360); RED CELL DISTRIBUTION WIDTH 21.2 % (11.7-14.4)
[2022-02-04 06:26] LABS: INR 1.59; PROTHROMBIN TIME 20.3 seconds (11.9-14.5)
[2022-02-04 06:27] LABS: PARTIAL THROMBOPLASTIN TIME 29.2 seconds (23.8-35.5)
[2022-02-04 06:35] LABS: ALBUMIN 3.2 g/dL (3.5-5.0); ALBUMIN/GLOBULIN RATIO 1.3 (0.8-2.0); ANION GAP 19.5 mmol/L (8-16); CALCIUM 7.2 mg/dL (8.4-10.2); CREATININE, SERUM 2.46 mg/dL (0.72-1.25); POTASSIUM 4.5 mmol/L (3.5-5.1)
[2022-02-04 06:40] LABS: MAGNESIUM 2.1 MG/DL (1.3-2.1); PHOSPHORUS 4.5 MG/DL (2.3-4.7)
[2022-02-04 07:04] LABS: CREATINE KINASE MB 39.9 ng/mL (0-5.0)
[2022-02-04] MEDS ORDERED: SODIUM BICARBONATE 8.4% 75 ML in SODIUM CHLORIDE 0.45% 1,000 ML IV ONE (08:00)
[2022-02-04] MEDS: INSULIN REGULAR, HUMAN 100 UNIT/1 ML SQ SCH ×4 (08:17→20:54)
[2022-02-04] MEDS: NOREPINEPHRINE 8 MG/D5W 250 ML 250 ML IV SCH (08:28)
[2022-02-04] MEDS: ACETAMINOPHEN 325 MG TAB PO PRN (11:54)
[2022-02-04 14:14] LABS: BASOPHILS # (AUTO) 0.1 (0.0-0.1); BASOPHILS % 0.4 % (0.0-1.0); EOSINOPHILS % 0.1 % (0.0-6.0); HEMOGLOBIN 11.3 g/dL (14.0-18.0); LYMPHOCYTES # (AUTO) 1.2 (1.0-3.2); LYMPHOCYTES % 7.3 % (18.0-39.1); MEAN CORPUSCULAR HEMOGLOBIN 32.3 pg (28-32); MEAN CORPUSCULAR HGB CONC 34.2 g/dL (31-35); MEAN CORPUSCULAR VOLUME 94.3 fL (81-99); MONOCYTES # (AUTO) 1.3 (0.2-0.8); MONOCYTES % 8.1 % (4.4-11.3); NEUTROPHILS # (AUTO) 13.5 (2.1-6.9); NEUTROPHILS % 82.5 % (38.7-80.0); PLATELET COUNT 202 x10e3/uL (140-360); RED CELL DISTRIBUTION WIDTH 21.3 % (11.7-14.4)
[2022-02-04 14:41] LABS: CREATINE KINASE MB 33.4 ng/mL (0-5.0)
[2022-02-04] MEDS: OCTREOTIDE ACETATE 500 MCG in SODIUM CHLORIDE 0.9% 250ML 250 ML IV SCH ×2 (15:02→19:54)
[2022-02-04 18:33] LABS: BASOPHILS % 0.3 % (0.0-1.0); EOSINOPHILS % 0.2 % (0.0-6.0); HEMATOCRIT 34.3 % (38.2-49.6); HEMOGLOBIN 11.1 g/dL (14.0-18.0); LYMPHOCYTES # (AUTO) 1.1 (1.0-3.2); LYMPHOCYTES % 7.2 % (18.0-39.1); MEAN CORPUSCULAR HGB CONC 32.4 g/dL (31-35); MEAN CORPUSCULAR VOLUME 98.8 fL (81-99); MONOCYTES # (AUTO) 1.1 (0.2-0.8); MONOCYTES % 7.2 % (4.4-11.3); NEUTROPHILS # (AUTO) 12.1 (2.1-6.9); NEUTROPHILS % 83.7 % (38.7-80.0); PLATELET COUNT 191 x10e3/uL (140-360); RED BLOOD COUNT 3.47 x10e6/uL (4.3-5.7); RED CELL DISTRIBUTION WIDTH 21.5 % (11.7-14.4)
[2022-02-04 18:55] LABS: CREATINE KINASE MB 26.4 ng/mL (0-5.0)
[2022-02-04] MEDS: SIMVASTATIN 20 MG TAB PO SCH (20:52)
[2022-02-05] VITALS (25 sets, daily range): BP systolic 110–141; BP diastolic 67–88
[2022-02-05 07:14] LABS: ANION GAP 16.9 mmol/L (8-16); CALCIUM 7.6 mg/dL (8.4-10.2); CREATININE, SERUM 1.91 mg/dL (0.72-1.25); POTASSIUM 3.9 mmol/L (3.5-5.1)
[2022-02-05] MEDS: INSULIN REGULAR, HUMAN 100 UNIT/1 ML SQ SCH ×4 (07:30→20:47)
[2022-02-05] MEDS: OCTREOTIDE ACETATE 500 MCG in SODIUM CHLORIDE 0.9% 250ML 250 ML IV SCH ×2 (09:00→19:12)
[2022-02-05 10:23] LABS: BASOPHILS % 0.2 % (0.0-1.0); EOSINOPHILS % 0.1 % (0.0-6.0); HEMATOCRIT 31.6 % (38.2-49.6); HEMOGLOBIN 10.6 g/dL (14.0-18.0); LYMPHOCYTES # (AUTO) 0.9 (1.0-3.2); LYMPHOCYTES % 6.9 % (18.0-39.1); MEAN CORPUSCULAR HEMOGLOBIN 32.6 pg (28-32); MEAN CORPUSCULAR HGB CONC 33.5 g/dL (31-35); MEAN CORPUSCULAR VOLUME 97.2 fL (81-99); MONOCYTES # (AUTO) 0.8 (0.2-0.8); MONOCYTES % 6.2 % (4.4-11.3); NEUTROPHILS # (AUTO) 10.7 (2.1-6.9); NEUTROPHILS % 85.3 % (38.7-80.0); PLATELET COUNT 146 x10e3/uL (140-360); RED BLOOD COUNT 3.25 x10e6/uL (4.3-5.7); RED CELL DISTRIBUTION WIDTH 21.2 % (11.7-14.4)
[2022-02-05] MEDS: ACETAMINOPHEN 325 MG TAB PO PRN (14:59)
[2022-02-05 16:51] LABS: BASOPHILS % 0.2 % (0.0-1.0); EOSINOPHILS % 0.2 % (0.0-6.0); HEMATOCRIT 32.7 % (38.2-49.6); HEMOGLOBIN 10.3 g/dL (14.0-18.0); LYMPHOCYTES # (AUTO) 0.9 (1.0-3.2); LYMPHOCYTES % 8.1 % (18.0-39.1); MEAN CORPUSCULAR HEMOGLOBIN 31.9 pg (28-32); MEAN CORPUSCULAR HGB CONC 31.5 g/dL (31-35); MEAN CORPUSCULAR VOLUME 101.2 fL (81-99); MONOCYTES # (AUTO) 0.7 (0.2-0.8); MONOCYTES % 6.8 % (4.4-11.3); NEUTROPHILS # (AUTO) 9.1 (2.1-6.9); NEUTROPHILS % 83.7 % (38.7-80.0); PLATELET COUNT 153 x10e3/uL (140-360); RED BLOOD COUNT 3.23 x10e6/uL (4.3-5.7); RED CELL DISTRIBUTION WIDTH 20.6 % (11.7-14.4)
[2022-02-05] MEDS: SIMVASTATIN 20 MG TAB PO SCH (20:46)
[2022-02-06] VITALS (17 sets, daily range): BP systolic 125–153; BP diastolic 73–92
[2022-02-06] MEDS: OCTREOTIDE ACETATE 500 MCG in SODIUM CHLORIDE 0.9% 250ML 250 ML IV SCH ×2 (02:00→04:28)
[2022-02-06 06:40] LABS: BASOPHILS % 0.2 % (0.0-1.0); EOSINOPHILS # (AUTO) 0.1 (0.0-0.4); EOSINOPHILS % 0.7 % (0.0-6.0); HEMATOCRIT 34.2 % (38.2-49.6); HEMOGLOBIN 10.8 g/dL (14.0-18.0); LYMPHOCYTES # (AUTO) 0.8 (1.0-3.2); LYMPHOCYTES % 7.9 % (18.0-39.1); MEAN CORPUSCULAR HEMOGLOBIN 32.3 pg (28-32); MEAN CORPUSCULAR HGB CONC 31.6 g/dL (31-35); MEAN CORPUSCULAR VOLUME 102.4 fL (81-99); MONOCYTES # (AUTO) 0.7 (0.2-0.8); MONOCYTES % 6.4 % (4.4-11.3); NEUTROPHILS # (AUTO) 8.6 (2.1-6.9); NEUTROPHILS % 83.6 % (38.7-80.0); PLATELET COUNT 152 x10e3/uL (140-360); RED BLOOD COUNT 3.34 x10e6/uL (4.3-5.7); RED CELL DISTRIBUTION WIDTH 20.2 % (11.7-14.4)
[2022-02-06] MEDS ORDERED: AMIODARONE 900MG 900 MG in Premix Bag 1 BAG IV SCH (06:45)
[2022-02-06 06:58] LABS: ALBUMIN 3.1 g/dL (3.5-5.0); ALBUMIN/GLOBULIN RATIO 1.2 (0.8-2.0); ANION GAP 15.1 mmol/L (8-16); CALCIUM 7.7 mg/dL (8.4-10.2); CREATININE, SERUM 1.64 mg/dL (0.72-1.25); POTASSIUM 4.1 mmol/L (3.5-5.1)
[2022-02-06] MEDS: INSULIN REGULAR, HUMAN 100 UNIT/1 ML SQ SCH ×4 (07:30→21:27)
[2022-02-06] MEDS: CYANOCOBALAMIN INJ 1,000 MCG/ML VIAL IM SCH ×2 (09:00→09:08)
[2022-02-06] MEDS ORDERED: FUROSEMIDE INJ 10 MG/ML 2 ML VIAL IV ONE ×2 (10:45→18:15)
[2022-02-06] MEDS: SIMVASTATIN 20 MG TAB PO SCH (21:28)
[2022-02-07] VITALS (18 sets, daily range): BP systolic 122–150; BP diastolic 72–111
[2022-02-07 06:46] LABS: BASOPHILS % 0.4 % (0.0-1.0); EOSINOPHILS # (AUTO) 0.2 (0.0-0.4); EOSINOPHILS % 1.9 % (0.0-6.0); HEMATOCRIT 31.3 % (38.2-49.6); HEMOGLOBIN 10.4 g/dL (14.0-18.0); LYMPHOCYTES # (AUTO) 1.2 (1.0-3.2); LYMPHOCYTES % 14.5 % (18.0-39.1); MEAN CORPUSCULAR HEMOGLOBIN 32.3 pg (28-32); MEAN CORPUSCULAR HGB CONC 33.2 g/dL (31-35); MEAN CORPUSCULAR VOLUME 97.2 fL (81-99); MONOCYTES # (AUTO) 0.6 (0.2-0.8); MONOCYTES % 7.6 % (4.4-11.3); NEUTROPHILS # (AUTO) 5.9 (2.1-6.9); NEUTROPHILS % 74.3 % (38.7-80.0); PLATELET COUNT 153 x10e3/uL (140-360); RED BLOOD COUNT 3.22 x10e6/uL (4.3-5.7); RED CELL DISTRIBUTION WIDTH 19.2 % (11.7-14.4)
[2022-02-07 07:00] LABS: ANION GAP 14.8 mmol/L (8-16); CALCIUM 7.9 mg/dL (8.4-10.2); CREATININE, SERUM 1.6 mg/dL (0.72-1.25); POTASSIUM 3.8 mmol/L (3.5-5.1)
[2022-02-07] MEDS: INSULIN REGULAR, HUMAN 100 UNIT/1 ML SQ SCH ×4 (07:30→21:21)
[2022-02-07] MEDS: CYANOCOBALAMIN INJ 1,000 MCG/ML VIAL IM SCH (08:59)
[2022-02-07] MEDS ORDERED: FUROSEMIDE INJ 10 MG/ML 4 ML VIAL IV ONE ×2 (13:00→17:30)
[2022-02-07] MEDS: METOPROLOL SUCCINATE 25 MG TAB XL PO SCH (18:52)
[2022-02-07] MEDS: SIMVASTATIN 20 MG TAB PO SCH (21:19)
[2022-02-08] VITALS (7 sets, daily range): BP systolic 126–142; BP diastolic 63–88
[2022-02-08 07:04] LABS: BASOPHILS % 0.3 % (0.0-1.0); EOSINOPHILS # (AUTO) 0.2 (0.0-0.4); EOSINOPHILS % 2.9 % (0.0-6.0); HEMATOCRIT 33.7 % (38.2-49.6); HEMOGLOBIN 10.6 g/dL (14.0-18.0); LYMPHOCYTES # (AUTO) 1.4 (1.0-3.2); MEAN CORPUSCULAR HGB CONC 31.5 g/dL (31-35); MEAN CORPUSCULAR VOLUME 101.8 fL (81-99); MONOCYTES # (AUTO) 0.7 (0.2-0.8); MONOCYTES % 9.4 % (4.4-11.3); NEUTROPHILS # (AUTO) 4.7 (2.1-6.9); NEUTROPHILS % 66.3 % (38.7-80.0); PLATELET COUNT 175 x10e3/uL (140-360); RED BLOOD COUNT 3.31 x10e6/uL (4.3-5.7); RED CELL DISTRIBUTION WIDTH 18.1 % (11.7-14.4)
[2022-02-08 07:24] LABS: ALBUMIN 2.7 g/dL (3.5-5.0); ANION GAP 13.6 mmol/L (8-16); CALCIUM 8.1 mg/dL (8.4-10.2); CREATININE, SERUM 1.63 mg/dL (0.72-1.25); POTASSIUM 3.6 mmol/L (3.5-5.1)
[2022-02-08] MEDS: INSULIN REGULAR, HUMAN 100 UNIT/1 ML SQ SCH ×4 (08:12→21:28)
[2022-02-08] MEDS: CYANOCOBALAMIN INJ 1,000 MCG/ML VIAL IM SCH (08:36)
[2022-02-08] MEDS: METOPROLOL SUCCINATE 25 MG TAB XL PO SCH (08:37)
[2022-02-08] MEDS: FUROSEMIDE 40 MG TAB PO SCH (08:37)
[2022-02-08] MEDS: PANTOPRAZOLE SOD 40 MG TABEC PO SCH ×2 (09:15→16:54)
[2022-02-08] MEDS: SIMVASTATIN 20 MG TAB PO SCH (21:47)
[2022-02-09] VITALS (8 sets, daily range): BP systolic 124–152; BP diastolic 51–89
[2022-02-09 05:58] LABS: BASOPHILS % 0.4 % (0.0-1.0); EOSINOPHILS # (AUTO) 0.2 (0.0-0.4); EOSINOPHILS % 2.5 % (0.0-6.0); HEMATOCRIT 31.4 % (38.2-49.6); HEMOGLOBIN 10.4 g/dL (14.0-18.0); LYMPHOCYTES # (AUTO) 1.6 (1.0-3.2); LYMPHOCYTES % 21.6 % (18.0-39.1); MEAN CORPUSCULAR HEMOGLOBIN 32.1 pg (28-32); MEAN CORPUSCULAR HGB CONC 33.1 g/dL (31-35); MEAN CORPUSCULAR VOLUME 96.9 fL (81-99); MONOCYTES # (AUTO) 0.5 (0.2-0.8); MONOCYTES % 7.2 % (4.4-11.3); PLATELET COUNT 166 x10e3/uL (140-360); RED BLOOD COUNT 3.24 x10e6/uL (4.3-5.7); RED CELL DISTRIBUTION WIDTH 17.8 % (11.7-14.4)
[2022-02-09 06:30] LABS: ALBUMIN 2.6 g/dL (3.5-5.0); ANION GAP 18.5 mmol/L (8-16); CREATININE, SERUM 1.48 mg/dL (0.72-1.25); POTASSIUM 3.5 mmol/L (3.5-5.1)
[2022-02-09] MEDS: INSULIN REGULAR, HUMAN 100 UNIT/1 ML SQ SCH ×4 (07:30→21:00)
[2022-02-09] MEDS: FUROSEMIDE 40 MG TAB PO SCH (09:00)
[2022-02-09] MEDS: METOPROLOL SUCCINATE 25 MG TAB XL PO SCH (09:00)
[2022-02-09] MEDS: PANTOPRAZOLE SOD 40 MG TABEC PO SCH ×2 (09:00→17:36)
[2022-02-09] MEDS: CYANOCOBALAMIN INJ 1,000 MCG/ML VIAL IM SCH (09:34)
[2022-02-09] MEDS ORDERED: PEG (High)/E-LYTE SOLN 4,000 ML BTL PO ONE (19:00)
[2022-02-09] MEDS ORDERED: ONDANSETRON HCL INJ 2MG/ML 2ML 2 MG/ML VIAL ONE (19:04)
[2022-02-09] MEDS ORDERED: LIDOCAINE HCL 2% LOCAL INJ 5 ML SDV VIAL INJ ONE (19:04)
[2022-02-09] MEDS ORDERED: GLYCOPYRROLATE INJ 0.2 MG/ML VIAL ONE (19:04)
[2022-02-09] MEDS ORDERED: PROPOFOL IV EMULSION 10 MG/ML 20 ML VIAL ONE (19:04)
[2022-02-09] MEDS ORDERED: POVIDONE IODINE 0.05% 0.05 % ML PO ONE (19:04)
[2022-02-09] MEDS: SIMVASTATIN 20 MG TAB PO SCH (21:29)
[2022-02-10] VITALS: BP 127/76
[2022-02-10] MEDS ORDERED: BISACODYL 5 MG TAB EC PO ONE ×3 (00:15→01:15)
[2022-02-10 04:00] VITALS: BP 152/76
[2022-02-10] MEDS: INSULIN REGULAR, HUMAN 100 UNIT/1 ML SQ SCH ×3 (07:30→16:30)
[2022-02-10 08:00] VITALS: BP 127/88
[2022-02-10] MEDS: FUROSEMIDE 40 MG TAB PO SCH (08:01)
[2022-02-10] MEDS: PANTOPRAZOLE SOD 40 MG TABEC PO SCH (08:02)
[2022-02-10] MEDS: METOPROLOL SUCCINATE 25 MG TAB XL PO SCH (08:02)
[2022-02-10 08:26] VITALS: BP 127/88
[2022-02-10] MEDS: CYANOCOBALAMIN INJ 1,000 MCG/ML VIAL IM SCH (08:29)
[2022-02-10] MEDS ORDERED: DEXTROSE 5%/0.45% SOD CHL 1,000 ML IV SCH (10:45)
[2022-02-10] MEDS ORDERED: SIMETHICONE 40 MG/0.6 ML BTL ONE (11:21)
[2022-02-10] MEDS ORDERED: ESMOLOL HCL 100MG/10ML 10 MG/ML VIAL ONE (11:33)
[2022-02-10] MEDS ORDERED: PANTOPRAZOLE SO40 MG PO (12:36)
[2022-02-10] MEDS ORDERED: FUROSEMIDE40 MG PO (12:36)
[2022-02-10] MEDS ORDERED: TOPROL XL25 MG PO (12:36)
[2022-02-10 13:11] VITALS: BP_SYST 58
[2022-02-10 15:43] VITALS: BP 153/84
== END 2022-02-10 17:04 | disposition home or self-care (01) | DRG 377 ==
LOC: ER 09:34 → ERHOLD 11:46 → ICU 14:11 → MED/SURG2 02-08 13:53
PROVIDERS: ADMIT Internal Medicine; ATTEND Internal Medicine
PROC: 02HV33Z Insertion of Infusion Device into Superior Vena Cava, Percutaneous Approach (ICD-10-PCS; principal; 2022-02-03)
PROC: 3E043XZ Introduction of Vasopressor into Central Vein, Percutaneous Approach (ICD-10-PCS; 2022-02-03)
PROC: 30243L1 Transfusion of Nonautologous Fresh Plasma into Central Vein, Percutaneous Approach (ICD-10-PCS; 2022-02-03)
PROC: 30243N1 Transfusion of Nonautologous Red Blood Cells into Central Vein, Percutaneous Approach (ICD-10-PCS; 2022-02-03)
PROC: 30243K1 Transfusion of Nonautologous Frozen Plasma into Central Vein, Percutaneous Approach (ICD-10-PCS; 2022-02-03)
PROC: 0DB68ZX Excision of Stomach, Via Natural or Artificial Opening Endoscopic, Diagnostic (ICD-10-PCS; 2022-02-09)
PROC: 0DBM8ZX Excision of Descending Colon, Via Natural or Artificial Opening Endoscopic, Diagnostic (ICD-10-PCS; 2022-02-10)
PROC: 0DBL8ZX Excision of Transverse Colon, Via Natural or Artificial Opening Endoscopic, Diagnostic (ICD-10-PCS; 2022-02-10)
DX: K57.31 Diverticulosis of large intestine without perforation or abscess with bleeding (principal); I21.A1 Myocardial infarction type 2; R57.1 Hypovolemic shock; N17.0 Acute kidney failure with tubular necrosis; D68.32 Hemorrhagic disorder due to extrinsic circulating anticoagulants; D62 Acute posthemorrhagic anemia; K86.1 Other chronic pancreatitis; E87.21 Acute metabolic acidosis; I48.19 Other persistent atrial fibrillation; K63.5 Polyp of colon; K20.90 Esophagitis, unspecified without bleeding; E11.65 Type 2 diabetes mellitus with hyperglycemia; E11.22 Type 2 diabetes mellitus with diabetic chronic kidney disease; I12.9 Hypertensive chronic kidney disease with stage 1 through stage 4 chronic kidney disease, or unspecified chronic kidney disease; N18.30 Chronic kidney disease, stage 3 unspecified; E11.69 Type 2 diabetes mellitus with other specified complication; E78.5 Hyperlipidemia, unspecified; E66.9 Obesity, unspecified; T45.515A Adverse effect of anticoagulants, initial encounter; I25.10 Atherosclerotic heart disease of native coronary artery without angina pectoris; D64.9 Anemia, unspecified; Z95.1 Presence of aortocoronary bypass graft; I25.2 Old myocardial infarction; Z79.01 Long term (current) use of anticoagulants; Z68.30 Body mass index [BMI] 30.0-30.9, adult; Z79.82 Long term (current) use of aspirin
CPT/HCPCS: 0223U; 36415; 43239; 45380; 45385; 51700; 70450; 71045; 74174; 76770; 80048; 80053; 81001; 81015; 82550; 82553; 82607; 82746; 82805; 82948; 83540; 83605; 83690; 83735; 83880; 84100; 84443; 84466; 84484; 85014; 85018; 85025; 85045; 85610; 85730; 86850; 86900; 86920; 87040; 87086; 88304; 88305; 88312; 88342; 93005; 93306; 94799; 96361; 96366; 96372; 99251; 99284; J0696; J1817; J1940; J2001; J2185; J2353; J2354; J2405; J3370; J3420; J3430; J7030; J7040; J7050; P9016; P9017; Q9967